=== PATIENT | male | born 1970 | race African-American/Black ===

== ENCOUNTER 2018-06-15 14:11 | Inpatient (IN) | payer OTHER ==
[2018-06-15 15:58] VITALS: BMI 25.9
--- NOTE | 2018-06-15 18:23 | HP ---
COWS - Scale Resting Pulse: 1= MI 81-100 Sweatin=Flushed/Facial Moisture Restless Observation: 0= Sits Still Pupil Size: 2= Moderately Dilated (Pupils = 4 mm) Bone or Joint Aches: 1= Mild Discomfort Runny Nose/ Eye Tearin= Runny Nose/Eyes GI Upset > 30mins: 2= Nausea/Diarrhea (No diarrhea) Tremor Observation: 4= Gross Tremor/Twitching Yawning Observation: 0= None Anxiety or Irritability: 2=Irritable/Anxious Goose Flesh Skin: 0=Smooth Skin COWS Score: 16 CIWA Score - Admission Criteria [facility]ASAS Guidelines: Admission for Medically Managed Detox: Requires at least one of the followin. CIWA greater than 12 2. Seizures within the past 24 hours 3. Delirium tremens within the past 24 hours 4. Hallucinations within the past 24 hours 5. Acute intervention needed for co occurring medical disorder 6. Acute intervention needed for co occurring psychiatric disorder 7. Severe withdrawal that cannot be handled at a lower level of care (continued vomiting, continued diarrhea, abnormal vital signs) requiring intravenous medication and/or fluids 8. Admission ROS [facility] - [facility] Chief Complaint: Here for hx heroin use and percocet detox. Allergies/Adverse Reactions: Allergies Allergy/AdvReac Type Severity Reaction Status Date / Time No Known Allergies Allergy Verified 06/15/18 19:05 History of Present Illness: Hx heroin use since age 29. Hx percocet use since 47. Denies hx: overdose, seizures, or blackouts. Hx: asthma. Last exacerbation over 1 year ago. Was on methadone while incarcerated. Released and last methadone dose was . States mandated into detox by parole. States injured (R) knee 1 week ago and seen by Agnes Chicas and x-ray negative. Exam Limitations: No Limitations - Ebola screening Have you traveled outside of the country in the last 21 days: No Have you had contact with anyone from an Ebola affected area: No Have you been sick,other than usual withdrawal symptoms: No Do you have a fever: No - Review of Systems Constitutional: Diaphoresis EENT: reports: Blurred Vision, Nose Congestion (Runny nose r/t withdrawal) Respiratory: reports: No Symptoms reported Cardiac: reports: No Symptoms Reported GI: reports: Nausea ( r/t withdrawal) : reports: No Symptoms Reported Musculoskeletal: reports: Joint Pain ((R) knee pain - fell 1 week ago. Pain is sharp "10". Increases w/ walking), Joint Stiffness (Stiffness (R) elbow x months. States r/t arthritis.) Integumentary: reports: No Symptoms Reported Neuro: reports: Tremors Endocrine: reports: Excessive Sweating ( r/t withdrawal) Hematology: reports: No Symptoms Reported Psychiatric: reports: Judgement Intact, Orientated x3, Agitated, Anxious ( Denies thoughts of harming self or others.) Patient History - PPD History Previous Implant?: Yes Documented Results: Negative w/o proof Implanted On Prior [facility] Admission?: No PPD to be Administered?: Yes - Smoking Cessation Smoking history: Never smoked Have you smoked in the past 12 months: No - Substance & Tx. History Hx Alcohol Use: No Hx Substance Use: Yes Substance Use Type: Heroin Hx Substance Use Treatment: Yes (detox) - Substances Abused Heroin Route: SNIFF Frequency: Daily Amount used: 7 BAGS Age of first use: 29 Date of Last Use: 06/15/18 PERCOCET Route: Oral Frequency: Daily Amount used: 2 PILLS Age of first use: 29 Date of Last Use: 06/15/18 Admission Physical Exam BHS - Vital Signs Vital Signs: Vital Signs - 24 hr 06/15/18 15:55 Temperature 96.9 F L Pulse Rate 83 Respiratory 18 Rate Blood Pressure 145/81 - Physical General Appearance: Yes: Mild Distress, Tremorous, Irritable, Sweating, Anxious HEENTM: Yes: EOMI, Hearing grossly Normal, Normocephalic, ROSA (Pupils at 4 mm) Respiratory: Yes: Lungs Clear, Normal Breath Sounds, No Respiratory Distress Neck: Yes: No masses,lesions,Nodules, Supple Breast: Yes: Breast Exam Deferred Cardiology: Yes: Regular Rhythm, Regular Rate, S1, S2 Abdominal: Yes: Non Tender, Flat, Soft, Increased Bowel Sounds Genitourinary: Yes: Within Normal Limits Back: Yes: Normal Inspection Musculoskeletal: Yes: Joint swelling ((R) knee swelling. No increased erythema or warmth. FROM.), Other (Limited ROM (R) elbow unrelated to pain.) Extremities: Yes: Normal Capillary Refill, Normal Inspection, Normal Range of Motion, Non-Tender, Tremors (of hands when arms elevated) Neurological: Yes: i&c tech II-XII NML intact, Fully Oriented, Alert, Motor Strength 5/5, Normal Response Integumentary: Yes: Normal Color, Dry, Warm Lymphatic: Yes: Within Normal Limits - Diagnostic (1) Opioid dependence with withdrawal Current Visit: Yes Status: Acute (2) Knee injury Current Visit: Yes Status: Acute Qualifiers: Encounter type: subsequent encounter Laterality: right Qualified Code(s) : S89.91XD - Unspecified injury of right lower leg, subsequent encounter (3) Stiff elbow Current Visit: Yes Status: Chronic Qualifiers: Laterality: right Qualified Code(s): M25.621 - Stiffness of right elbow, not elsewhere classified Cleared for Admission BHS - Detox or Rehab Detox Regimen/Protocol: Methadone BHS Breath Alcohol Content Breath Alcohol Content: 0 Urine Drug Screen - Results Drug Screen Negative: No Urine Drug Screen Results: BZO-Benzodiazepines, FEN-Fentanyl
[2018-06-15] MEDS ORDERED: LOPERAMIDE HCL 2 MG CAPSULE PO PRN (19:05)
[2018-06-15] MEDS ORDERED: MAGNESIUM HYDROX 2400MG/30ML ORAL SUSPENSION 30 ML CUP PO PRN (19:05)
[2018-06-15] MEDS ORDERED: METHADONE HCL 10 MG TABLET (FOR DETOX USE ONLY) PO ONE ×2 (19:05→23:00)
[2018-06-15] MEDS ORDERED: MAG HYDROX/AL HYDROX/SIMETH 30 ML UNIT-DOSE CUP PO PRN (19:05)
[2018-06-15] MEDS ORDERED: MENTHOL/PHENOL 1 EACH UD MM PRN (19:05)
[2018-06-15] MEDS ORDERED: MAGNESIUM CITRATE 300 ML BOTTLE PO PRN (19:05)
[2018-06-15] MEDS: diazePAM 5 MG TABLET PO PRN (21:02)
[2018-06-15] MEDS: IBUPROFEN 400 MG TABLET (FP) PO SCH (21:02)
[2018-06-15] MEDS ORDERED: MELATONIN 5 MG TABLETS PO PRN (22:00)
[2018-06-15] MEDS: THIAMINE HCL 100 MG TABLET (FP) PO SCH (22:51)
[2018-06-15] MEDS: ACETAMINOPHEN 325 MG TABLET (FP) PO PRN (22:54)
[2018-06-16 02:47] LABS: URINE APPEARANCE CLEAR; URINE BILIRUBIN NEGATIVE (<2.0 mg/dL); URINE COLOR COLORLESS; URINE GLUCOSE (UA) NEGATIVE (NEGATIVE); URINE KETONE NEGATIVE (NEGATIVE); URINE LEUK ESTERASE NEGATIVE (NEGATIVE); URINE NITRITE NEGATIVE (NEGATIVE); URINE PROTEIN NEGATIVE (NEGATIVE); URINE UROBILINOGEN NEGATIVE mg/dL (0.2-1.0)
[2018-06-16] MEDS: IBUPROFEN 400 MG TABLET (FP) PO SCH ×3 (05:56→22:43)
[2018-06-16] MEDS ORDERED: METHADONE HCL 10 MG TABLET (FOR DETOX USE ONLY) PO ONE (10:00)
[2018-06-16 10:21] LABS: HEMATOCRIT 38.1 % (35.4-49); HEMOGLOBIN 12.3 GM/dL (11.7-16.9); MCH 27.9 pg (25.7-33.7); MCHC 32.3 g/dl (32.0-35.9); MEAN CELL VOLUME 86.4 fl (80-96); PLATELET COUNT 136 K/MM3 (134-434); RBC 4.41 M/mm3 (4.00-5.60); RDW 13.5 % (11.9-15.9); WHITE BLOOD COUNT 5.2 K/mm3 (4.0-10.0)
[2018-06-16 10:39] LABS: ALBUMIN 2.9 g/dl (3.4-5.0); ALK PHOS 99 U/L (45-117); ANION GAP 3 MMOL/L (8-16); BILIRUBIN,TOTAL 0.5 mg/dL (0.2-1); BLOOD UREA NITROGEN 7 mg/dL (7-18); CHLORIDE 108 mmol/L (98-107); CO2 31 mmol/L (21-32); CREATININE 0.8 mg/dL (0.55-1.3); GLUCOSE,RANDOM 98 mg/dL (74-106); POTASSIUM 4.4 mmol/L (3.5-5.1); SGOT/AST 19 U/L (15-37); SGPT/ALT 26 U/L (13-61); SODIUM 142 mmol/L (136-145); TOT PROT 5.6 g/dl (6.4-8.2)
[2018-06-16] MEDS: diazePAM 5 MG TABLET PO PRN (11:12)
[2018-06-16] MEDS: PRENATAL VITAMINS W/ FOLIC ACID TABLET (FP) PO SCH (11:12)
--- NOTE | 2018-06-16 11:55 | EKG ---
Test Reason : Blood Pressure : / mmHG Vent. Rate : 088 BPM Atrial Rate : 088 BPM P-R Int : 152 ms QRS Dur : 082 ms QT Int : 390 ms P-R-T Axes : 068 055 043 degrees QTc Int : 471 ms NORMAL SINUS RHYTHM NORMAL ECG NO PREVIOUS ECGS AVAILABLE Confirmed by KAREN WILCOX MD ([id number]) on 06/16/2018 11:55:24 AM Referred By: Confirmed By:KAREN WILCOX MD
--- NOTE | 2018-06-16 14:09 | PN ---
BHS COWS - Scale Resting Pulse: 0= MI 80 or Below Sweatin= Chills/Flushing Restless Observation: 3= Extraneous Movement Pupil Size: 1= Pupils >than Normal Bone or Joint Aches: 2= Severe Diffuse Aches Runny Nose/ Eye Tearin= Runny Nose/Eyes GI Upset > 30mins: 3= Vomiting/Diarrhea Tremor Observation of Outstretched Hands: 2= Slight Tremor Visible Yawning Observation: 0= None Anxiety or Irritability: 2=Irritable/Anxious Goose Flesh Skin: 0=Smooth Skin COWS Score: 16 BHS Progress Note (SOAP) Subjective: Sweating, interrupted sleep, anxious Objective: 06/16/18 14:04 Last Vital Signs Temp Pulse Resp BP Pulse Ox 97.3 F L 78 18 114/73 06/16/18 13:00 06/16/18 13:00 06/16/18 13:00 06/16/18 13:00 Laboratory Tests 06/16/18 06/16/18 06/16/18 00:00 07:00 07:00 WBC 5.2 RBC 4.41 Hgb 12.3 Hct 38.1 MCV 86.4 MCH 27.9 MCHC 32.3 RDW 13.5 Plt Count 136 MPV 9.0 Sodium 142 Potassium 4.4 Chloride 108 H Carbon Dioxide 31 Anion Gap 3 L BUN 7 Creatinine 0.8 Creat Clearance w eGFR > 60 Random Glucose 98 Calcium 8.0 L Total Bilirubin 0.5 AST 19 ALT 26 Alkaline Phosphatase 99 Total Protein 5.6 L Albumin 2.9 L Urine Color Colorless Urine Appearance Clear Urine pH 6.0 Ur Specific [place] 1.000 L Urine Protein Negative Urine Glucose (UA) Negative Urine Ketones Negative Urine Blood Negative Urine Nitrite Negative Urine Bilirubin Negative Urine Urobilinogen Negative Ur Leukocyte Esterase Negative RPR Titer 06/16/18 07:00 WBC RBC Hgb Hct MCV MCH MCHC RDW Plt Count MPV Sodium Potassium Chloride Carbon Dioxide Anion Gap BUN Creatinine Creat Clearance w eGFR Random Glucose Calcium Total Bilirubin AST ALT Alkaline Phosphatase Total Protein Albumin Urine Color Urine Appearance Urine pH Ur Specific [place] Urine Protein Urine Glucose (UA) Urine Ketones Urine Blood Urine Nitrite Urine Bilirubin Urine Urobilinogen Ur Leukocyte Esterase RPR Titer Nonreactive Labs reviewed Assessment: 06/16/18 14:05 Withdrawal symptoms Plan: Continue detox Encouraged PO water intake
[2018-06-16] MEDS: THIAMINE HCL 100 MG TABLET (FP) PO SCH (22:42)
[2018-06-17] MEDS: IBUPROFEN 400 MG TABLET (FP) PO SCH ×3 (07:08→22:32)
[2018-06-17] MEDS ORDERED: METHADONE HCL 5 MG TABLET (FOR DETOX USE ONLY) PO ONE (10:00)
[2018-06-17] MEDS: PRENATAL VITAMINS W/ FOLIC ACID TABLET (FP) PO SCH (10:44)
[2018-06-17] MEDS: diazePAM 5 MG TABLET PO PRN (10:45)
--- NOTE | 2018-06-17 15:17 | PN ---
BHS COWS - Scale Resting Pulse: 1= OR 81-100 Sweatin= Chills/Flushing Restless Observation: 3= Extraneous Movement Pupil Size: 0= Normal to Room Light Bone or Joint Aches: 2= Severe Diffuse Aches Runny Nose/ Eye Tearin= None GI Upset > 30mins: 2= Nausea/Diarrhea Tremor Observation of Outstretched Hands: 2= Slight Tremor Visible Yawning Observation: 0= None Anxiety or Irritability: 2=Irritable/Anxious Goose Flesh Skin: 0=Smooth Skin COWS Score: 13 BHS Progress Note (SOAP) Subjective: Interrupted sleep, chills, sweating Objective: 06/17/18 15:22 Last Vital Signs Temp Pulse Resp BP Pulse Ox 98.2 F 86 18 139/74 06/17/18 14:53 06/17/18 14:53 06/17/18 14:53 06/17/18 14:53 Laboratory Tests 06/16/18 06/16/18 06/16/18 00:00 07:00 07:00 WBC 5.2 RBC 4.41 Hgb 12.3 Hct 38.1 MCV 86.4 MCH 27.9 MCHC 32.3 RDW 13.5 Plt Count 136 MPV 9.0 Sodium 142 Potassium 4.4 Chloride 108 H Carbon Dioxide 31 Anion Gap 3 L BUN 7 Creatinine 0.8 Creat Clearance w eGFR > 60 Random Glucose 98 Calcium 8.0 L Total Bilirubin 0.5 AST 19 ALT 26 Alkaline Phosphatase 99 Total Protein 5.6 L Albumin 2.9 L Urine Color Colorless Urine Appearance Clear Urine pH 6.0 Ur Specific [place] 1.000 L Urine Protein Negative Urine Glucose (UA) Negative Urine Ketones Negative Urine Blood Negative Urine Nitrite Negative Urine Bilirubin Negative Urine Urobilinogen Negative Ur Leukocyte Esterase Negative RPR Titer 06/16/18 07:00 WBC RBC Hgb Hct MCV MCH MCHC RDW Plt Count MPV Sodium Potassium Chloride Carbon Dioxide Anion Gap BUN Creatinine Creat Clearance w eGFR Random Glucose Calcium Total Bilirubin AST ALT Alkaline Phosphatase Total Protein Albumin Urine Color Urine Appearance Urine pH Ur Specific [place] Urine Protein Urine Glucose (UA) Urine Ketones Urine Blood Urine Nitrite Urine Bilirubin Urine Urobilinogen Ur Leukocyte Esterase RPR Titer Nonreactive Labs reviewed Assessment: 06/17/18 15:22 Withdrawal symptoms Plan: Continue detox Encouraged PO water intake
[2018-06-17] MEDS: THIAMINE HCL 100 MG TABLET (FP) PO SCH (22:31)
[2018-06-18] MEDS: IBUPROFEN 400 MG TABLET (FP) PO SCH ×2 (05:46→15:05)
[2018-06-18] MEDS ORDERED: METHADONE HCL 5 MG TABLET (FOR DETOX USE ONLY) PO ONE (10:00)
[2018-06-18] MEDS: PRENATAL VITAMINS W/ FOLIC ACID TABLET (FP) PO SCH (11:35)
[2018-06-18] MEDS: diazePAM 5 MG TABLET PO PRN (11:36)
--- NOTE | 2018-06-18 13:18 | PN ---
[facility] Progress Note Note: PATIENT CONTINUES WITH DETOX REGIMEN. STATES HE IS FEELING BETTER. C/O MILD BODY ACHES. Vital Signs Temperature 97 F L 06/18/18 09:07 Pulse Rate 70 06/18/18 09:07 Respiratory Rate 18 06/18/18 09:07 Blood Pressure 114/76 06/18/18 09:07 O2 Sat by Pulse Oximetry (%) Vital Signs Temperature 97 F L 06/18/18 09:07 Pulse Rate 70 06/18/18 09:07 Respiratory Rate 18 06/18/18 09:07 Blood Pressure 114/76 06/18/18 09:07 O2 Sat by Pulse Oximetry (%) Laboratory Tests 06/16/18 06/16/18 06/16/18 00:00 07:00 07:00 WBC 5.2 RBC 4.41 Hgb 12.3 Hct 38.1 MCV 86.4 MCH 27.9 MCHC 32.3 RDW 13.5 Plt Count 136 MPV 9.0 Sodium 142 Potassium 4.4 Chloride 108 H Carbon Dioxide 31 Anion Gap 3 L BUN 7 Creatinine 0.8 Creat Clearance w eGFR > 60 Random Glucose 98 Calcium 8.0 L Total Bilirubin 0.5 AST 19 ALT 26 Alkaline Phosphatase 99 Total Protein 5.6 L Albumin 2.9 L Urine Color Colorless Urine Appearance Clear Urine pH 6.0 Ur Specific [place] 1.000 L Urine Protein Negative Urine Glucose (UA) Negative Urine Ketones Negative Urine Blood Negative Urine Nitrite Negative Urine Bilirubin Negative Urine Urobilinogen Negative Ur Leukocyte Esterase Negative RPR Titer 06/16/18 07:00 WBC RBC Hgb Hct MCV MCH MCHC RDW Plt Count MPV Sodium Potassium Chloride Carbon Dioxide Anion Gap BUN Creatinine Creat Clearance w eGFR Random Glucose Calcium Total Bilirubin AST ALT Alkaline Phosphatase Total Protein Albumin Urine Color Urine Appearance Urine pH Ur Specific [place] Urine Protein Urine Glucose (UA) Urine Ketones Urine Blood Urine Nitrite Urine Bilirubin Urine Urobilinogen Ur Leukocyte Esterase RPR Titer Nonreactive PE: ALERT AND ORIENTED X 3 SKIN WARM AN DRY EXT FULL ROM AMB AD SHAKEEL A/P WITHDRAWAL SX CONTINUE DETOX ORAL FLUIDS ENCOURAGED CONTINUE TO MONITOR CLINICALLY
[2018-06-18] MEDS: THIAMINE HCL 100 MG TABLET (FP) PO SCH (23:01)
[2018-06-19] MEDS ORDERED: METHADONE HCL 10 MG TABLET (FOR DETOX USE ONLY) PO ONE (10:00)
[2018-06-19] MEDS: PRENATAL VITAMINS W/ FOLIC ACID TABLET (FP) PO SCH (12:23)
--- NOTE | 2018-06-19 16:32 | PN ---
BHS Progress Note (SOAP) Subjective: Interrupted sleep Objective: 06/19/18 16:28 Last Vital Signs Temp Pulse Resp BP Pulse Ox 96.6 F L 70 18 117/77 06/19/18 13:33 06/19/18 13:33 06/19/18 13:33 06/19/18 13:33 Laboratory Tests 06/16/18 06/16/18 06/16/18 00:00 07:00 07:00 WBC 5.2 RBC 4.41 Hgb 12.3 Hct 38.1 MCV 86.4 MCH 27.9 MCHC 32.3 RDW 13.5 Plt Count 136 MPV 9.0 Sodium 142 Potassium 4.4 Chloride 108 H Carbon Dioxide 31 Anion Gap 3 L BUN 7 Creatinine 0.8 Creat Clearance w eGFR > 60 Random Glucose 98 Calcium 8.0 L Total Bilirubin 0.5 AST 19 ALT 26 Alkaline Phosphatase 99 Total Protein 5.6 L Albumin 2.9 L Urine Color Colorless Urine Appearance Clear Urine pH 6.0 Ur Specific [place] 1.000 L Urine Protein Negative Urine Glucose (UA) Negative Urine Ketones Negative Urine Blood Negative Urine Nitrite Negative Urine Bilirubin Negative Urine Urobilinogen Negative Ur Leukocyte Esterase Negative RPR Titer 06/16/18 07:00 WBC RBC Hgb Hct MCV MCH MCHC RDW Plt Count MPV Sodium Potassium Chloride Carbon Dioxide Anion Gap BUN Creatinine Creat Clearance w eGFR Random Glucose Calcium Total Bilirubin AST ALT Alkaline Phosphatase Total Protein Albumin Urine Color Urine Appearance Urine pH Ur Specific [place] Urine Protein Urine Glucose (UA) Urine Ketones Urine Blood Urine Nitrite Urine Bilirubin Urine Urobilinogen Ur Leukocyte Esterase RPR Titer Nonreactive Labs reviewed Assessment: 06/19/18 16:31 Withdrawal symptoms Plan: Continue detox Encouraged PO water intake
[2018-06-19] MEDS: ACETAMINOPHEN 325 MG TABLET (FP) PO PRN (22:44)
[2018-06-19] MEDS: THIAMINE HCL 100 MG TABLET (FP) PO SCH (22:46)
[2018-06-20] MEDS ORDERED: METHADONE HCL 5 MG TABLET (FOR DETOX USE ONLY) PO ONE (06:00)
[2018-06-20 06:09] VITALS: BP 115/70; PULSE 60; TEMP 96.9
--- NOTE | 2018-06-20 12:27 | DS ---
[facility] Detox Discharge Summary Admission Date: 06/15/18 Discharge Date: 06/20/18 - History Present History: Opioid Dependence Additional Comments: 48 years old male admitted on 06/15/18 for opiate withdrawal sx completed opiate detox regimen aftercare [facility] - Physical Exam Results Vital Signs: Vital Signs Temperature 96.9 F L 06/20/18 06:09 Pulse Rate 60 06/20/18 06:09 Respiratory Rate 18 06/20/18 06:09 Blood Pressure 115/70 06/20/18 06:09 O2 Sat by Pulse Oximetry (%) Pertinent Admission Physical Exam Findings: opiate withdrawal sx Vital Signs Temperature 96.9 F L 06/20/18 06:09 Pulse Rate 60 06/20/18 06:09 Respiratory Rate 18 06/20/18 06:09 Blood Pressure 115/70 06/20/18 06:09 O2 Sat by Pulse Oximetry (%) Laboratory Last Values WBC 5.2 K/mm3 (4.0-10.0) 06/16/18 07:00 RBC 4.41 M/mm3 (4.00-5.60) 06/16/18 07:00 Hgb 12.3 GM/dL (11.7-16.9) 06/16/18 07:00 Hct 38.1 % (35.4-49) 06/16/18 07:00 MCV 86.4 fl (80-96) 06/16/18 07:00 MCH 27.9 pg (25.7-33.7) 06/16/18 07:00 MCHC 32.3 g/dl (32.0-35.9) 06/16/18 07:00 RDW 13.5 % (11.9-15.9) 06/16/18 07:00 Plt Count 136 K/MM3 (134-434) 06/16/18 07:00 MPV 9.0 fl (7.5-11.1) 06/16/18 07:00 Sodium 142 mmol/L (136-145) 06/16/18 07:00 Potassium 4.4 mmol/L (3.5-5.1) 06/16/18 07:00 Chloride 108 mmol/L (98-107) H 06/16/18 07:00 Carbon Dioxide 31 mmol/L (21-32) 06/16/18 07:00 Anion Gap 3 MMOL/L (8-16) L 06/16/18 07:00 BUN 7 mg/dL (7-18) 06/16/18 07:00 Creatinine 0.8 mg/dL (0.55-1.3) 06/16/18 07:00 Creat Clearance w eGFR > 60 (>60) 06/16/18 07:00 Random Glucose 98 mg/dL (74-106) 06/16/18 07:00 Calcium 8.0 mg/dL (8.5-10.1) L 06/16/18 07:00 Total Bilirubin 0.5 mg/dL (0.2-1) 06/16/18 07:00 AST 19 U/L (15-37) 06/16/18 07:00 ALT 26 U/L (13-61) 06/16/18 07:00 Alkaline Phosphatase 99 U/L (45-117) 06/16/18 07:00 Total Protein 5.6 g/dl (6.4-8.2) L 06/16/18 07:00 Albumin 2.9 g/dl (3.4-5.0) L 06/16/18 07:00 Urine Color Colorless 06/16/18 00:00 Urine Appearance Clear 06/16/18 00:00 Urine pH 6.0 (5.0-8.0) 06/16/18 00:00 Ur Specific [place] 1.000 (1.010-1.035) L 06/16/18 00:00 Urine Protein Negative (NEGATIVE) 06/16/18 00:00 Urine Glucose (UA) Negative (NEGATIVE) 06/16/18 00:00 Urine Ketones Negative (NEGATIVE) 06/16/18 00:00 Urine Blood Negative (NEGATIVE) 06/16/18 00:00 Urine Nitrite Negative (NEGATIVE) 06/16/18 00:00 Urine Bilirubin Negative (<2.0 mg/dL) 06/16/18 00:00 Urine Urobilinogen Negative mg/dL (0.2-1.0) 06/16/18 00:00 Ur Leukocyte Esterase Negative (NEGATIVE) 06/16/18 00:00 RPR Titer Nonreactive (NONREACTIVE) 06/16/18 07:00 lab noted - Treatment Hospital Course: Detox Protocol Followed, Detoxed Safely, Responded well, Discharged Condition Good, Rehab Referral Accepted Patient has Accepted a Rehab Referral to: [facility] - Medication Discharge Medications: Ambulatory Orders NK [No Known Home Medication] 06/15/18 - Diagnosis (1) Opioid dependence with withdrawal Status: Acute - AMA Did Patient Leave Against Medical Advice: No
== END 2018-06-20 08:40 | disposition home or self-care (01) | DRG 773 ==
LOC: YASAS 14:11 → Y3N 17:31
PROC: HZ2ZZZZ Detoxification Services for Substance Abuse Treatment (ICD-10-PCS; principal; 2018-06-15)
DX: F11.23 Opioid dependence with withdrawal (principal); M25.621 Stiffness of right elbow, not elsewhere classified; S89.81XD Other specified injuries of right lower leg, subsequent encounter; Z87.09 Personal history of other diseases of the respiratory system
CPT/HCPCS: 36415; 80053; 81003; 85027; 86593; 93005; 93010